=== PATIENT | female | born 2000 | race Hispanic/Latino ===

== ENCOUNTER 2021-01-22 01:58 | Emergency (ER) | payer OTHER ==
[2021-01-22] MEDS ORDERED: Fluconazole 100 MG TAB PO SCH (04:30)
[2021-01-23 21:22] LABS: Chlamydia by PCR Not Detected (NotDetected); GC by PCR Not Detected (NotDetected)
== END 2021-01-22 04:56 | disposition home or self-care (01) ==
LOC: ERS 01:58
DX: B37.3 Candidiasis of vulva and vagina (principal)
CPT/HCPCS: 87480; 87491; 87510; 87591; 87660; 99283